=== PATIENT | male | born 1990 | race Two or more races ===

== ENCOUNTER 2017-04-29 09:38 | Emergency (ER) | payer OTHER ==
[~2017-04-29] VITALS: Ht 175.3 cm; Wt 106.6 kg
[2017-04-29] MEDS ORDERED: IBUPROFEN600 MG ORAL (10:12)
[2017-04-29] MEDS ORDERED: ROBAXIN-750750 MG PO (10:12)
[2017-04-29] MEDS ORDERED: Methocarbamol 750mg tab ORAL ONE (10:15)
[2017-04-29 10:21] VITALS: BP 152/100
[2017-04-29 10:22] VITALS: BP 152/100
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
== END 2017-04-29 10:26 | disposition home or self-care (01) ==
LOC: EMR 10:18
DX: M54.5 Low back pain (principal); G89.29 Other chronic pain; R03.0 Elevated blood-pressure reading, without diagnosis of hypertension
CPT/HCPCS: 99284

== ENCOUNTER 2018-04-08 12:01 | Emergency (ER) | payer OTHER ==
[~2018-04-08] VITALS: Ht 177.8 cm; Wt 89.4 kg
[~2018-04-08 12:01] MED LIST: IBUPROFEN600 MG ORAL; ROBAXIN-750750 MG PO
[2018-04-08] MEDS ORDERED: NKM (12:12)
--- NOTE | 2018-04-08 12:14 | NUR ---
ED Nurse Note: PT. AAOX4. WHEELED INTO THE ROOM DUE TO R ANKLE PAIN. PER PT. HE TRIPPED AND FELL LAST NIGHT WHILE WALKING FAST BUT DID NOT FEEL PAIN LAST NIGHT. STARTED HAVING PAIN ON THE R ANKLE TODAY. SKIN IS INTACT. PER PT. TOOK IBUPROFEN 800MG x 1 HR AGO
--- NOTE | 2018-04-08 12:31 | Emergency Room Report ---
History of Present Illness General Chief Complaint: Lower Extremity Injury Source: Patient Present Illness HPI 27-year-old male with no significant past medical history here complaining of pain in the right ankle and foot after twisting injury times one day ago. Patient reports that he was coming down stairs and he twisted his ankle did not feel much pain immediately after the fall and however started 10 out of 10 pain and right ankle and right lateral foot 2 hours after the accident. Patient has been icing flying topical ointments and Pool wrapping the ankle. Denies any pain radiation, tingling and numbness. He has been taking ibuprofen since last night and the last ibuprofen 800 mg taken 1 hour ago prior to coming to the emergency room. Denies all other injury, chest pain, SOB, palpitations, no other associated symptoms Allergies: Coded Allergies: No Known Allergies (Unverified , 04/29/17) Patient History Past Medical History: see triage record Past Surgical History: none Pertinent Family History: unable to obtain Immunizations: UTD Reviewed Nursing Documentation: PMH: Agreed; PSxH: Agreed Nursing Documentation-PMH Past Medical History: No Stated History Review of Systems All Other Systems: negative except mentioned in HPI Physical Exam Vital Signs Date Time Temp Pulse Resp B/P (MAP) Pulse Ox O2 Delivery O2 Flow Rate FiO2 04/08/18 12:09 98.1 116 20 130/83 97 Room Air Sp02 EP Interpretation: reviewed, normal General Appearance: normal inspection, well appearing, no apparent distress Head: normocephalic, atraumatic Eyes: bilateral eye normal inspection, bilateral eye PERRL ENT: normal ENT inspection, normal pharynx Neck: normal inspection, supple Respiratory: normal inspection, lungs clear, no wheezing Cardiovascular #1: normal inspection, regular rate, rhythm, no edema Gastrointestinal: normal inspection, soft Rectal: deferred Musculoskeletal: gait/station normal, no calf tenderness, swelling - right lateral ankle and foot Neurologic: normal inspection, alert, oriented x3 Psychiatric: normal inspection, judgement/insight normal Skin: normal inspection, no rash, warm/dry Lymphatic: normal inspection, no adenopathy Medical Decision Making PA Attestation all diagnosis and treatment plans were reviewed and discussed with my supervising physician Dr. Hays Diagnostic Impression: Primary Impression: Right ankle sprain ER Course 27-year-old male with no significant past medical history here complaining of pain in the right ankle and foot after twisting injury times one day ago. Patient reports that he was coming down stairs and he twisted his ankle did not feel much pain immediately after the fall and however started 10 out of 10 pain and right ankle and right lateral foot 2 hours after the accident. Patient has been icing flying topical ointments and Pool wrapping the ankle. Denies any pain radiation, tingling and numbness. He has been taking ibuprofen since last night and the last ibuprofen 800 mg taken 1 hour ago prior to coming to the emergency room. Denies all other injury, chest pain, SOB, palpitations, no other associated symptoms Ddx considered but are not limited to right ankle sprain, right foot sprain, right ankle fracture, right foot fracture Vital signs: are WNL, pt. is afebrile H&PE are most consistent with right ankle sprain ORDERS: right ankle x-ray and right foot x-ray, naproxen, voltaren gel ED INTERVENTIONS: right ankle immobilizer, crutches, DISCHARGE: At this time pt. is stable for d/c to home. Will provide printed patient care instructions, and any necessary prescriptions. Care plan and follow up instructions have been discussed with the patient prior to discharge. Other X-Ray Diagnostic Results Other X-Ray Diagnostic Results : X-Ray ordered: right ankle and right foot # of Views/Limited Vs Complete: 3 View Indication: Pain EP Interpretation: Yes JAYLA Xray: Interpretation reviewed, by supervising MD, and agrees with findings. Interpretation: no dislocation, no soft tissue swelling, no fractures Impression: No acute disease Electronically Signed by: Sharon Delarosa PA-C Last Vital Signs Date Time Temp Pulse Resp B/P (MAP) Pulse Ox O2 Delivery O2 Flow Rate FiO2 04/08/18 12:09 98.1 116 20 130/83 97 Room Air Disposition: HOME, SELF-CARE Condition: Stable Scripts Diclofenac Sodium (VOLTAREN) 100 Gm Gel..gram. 2 GM TP BID, #100 GM Prov: Sharon Gasca 04/08/18 Naproxen* (NAPROXEN*) 500 Mg Tablet 500 MG ORAL TWICE A DAY, #30 TAB Prov: Sharon Gasca 04/08/18 Patient Instructions: Ankle Sprain Additional Instructions: follow with the primary care provider and if any new symptoms such as tingling and numbness further imaging such as MRI needed pending radiologist's report if any changes he will be called Sharon Gasca Apr 08, 2018 12:31
[2018-04-08] MEDS ORDERED: VOLTAREN100 G1 TP (13:27)
[2018-04-08] MEDS ORDERED: NAPROXEN500 M2 ORAL (13:27)
[2018-04-08 13:40] VITALS: BP 123/77
--- NOTE | 2018-04-08 13:40 | NUR ---
ED Nurse Note: Pt cleared DC by JAYLA Aviles. Pt is A/Ox4, VSS, DC instruction and prescriptions given as well as immobilizer on Lt ankle and right size of crutches. pt verbalized understanding on crutch use. ID wristband removed. All belongings given to pt. Pt ambulated out with crutches of ER.
--- NOTE | 2018-04-09 10:30 | Diagnostic Imaging Report ---
Indication: Trauma, pain, swelling Technique: 3 views of the right ankle Comparison: none Findings: No acute fractures. No dislocations. Joint spaces are preserved. Normal mineralization. No radiopaque foreign body. Impression: Negative
--- NOTE | 2018-04-09 10:33 | Diagnostic Imaging Report ---
Indication: Trauma, pain, swelling Technique: 3 views right foot Comparison: none Findings: No acute fractures. No dislocations. The joint spaces are preserved. There is mild hammertoe deformity of the second through fifth digits. Impression: No acute bony trauma
== END 2018-04-08 13:40 | disposition home or self-care (01) ==
LOC: EMR 12:25
DX: S93.401A Sprain of unspecified ligament of right ankle, initial encounter (principal); X50.1XXA Overexertion from prolonged static or awkward postures, initial encounter; Y92.89 Other specified places as the place of occurrence of the external cause
CPT/HCPCS: 29515; 99283

== ENCOUNTER 2019-07-08 10:28 | Emergency (ER) | payer OTHER ==
[~2019-07-08] VITALS: Ht 175.3 cm; Wt 113.4 kg
[~2019-07-08 10:28] MED LIST changes: +NAPROXEN500 M2 ORAL; +NKM; +VOLTAREN100 G1 TP
--- NOTE | 2019-07-08 11:09 | NUR ---
ED Nurse Note: pt taken to x ray
--- NOTE | 2019-07-08 11:10 | Emergency Room Report ---
History of Present Illness General Chief Complaint: Multiple Trauma/Fall Source: Patient Present Illness HPI 28-year-old male presents complaining of hip pain status post fall. States that he was walking down the stairs yesterday at work when he tripped and fell. Denies falling and hitting his head. Denies hitting his head or LOC. Complaining of pain to his right buttock and right hip. Dull, 6 out of 10, nonradiating. Is able to bear weight. No other aggravating relieving factors. Denies any other associated symptoms Allergies: Coded Allergies: No Known Allergies (Unverified , 04/29/17) COVID-19 Screening Contact w/high risk pt: No Recent Travel to affected area: No Experienced COVID-19 symptoms?: No Patient History Past Medical History: HTN Past Surgical History: none Pertinent Family History: none Social History: Denies: smoking, alcohol use, drug use Immunizations: UTD Reviewed Nursing Documentation: PMH: Agreed; PSxH: Agreed Nursing Documentation-PMH Past Medical History: No History, Except For Hx Hypertension: Yes Review of Systems All Other Systems: negative except mentioned in HPI Physical Exam Vital Signs Date Time Temp Pulse Resp B/P (MAP) Pulse Ox O2 Delivery O2 Flow Rate FiO2 07/08/19 10:36 98.8 92 19 135/83 (100) 99 Room Air Sp02 EP Interpretation: reviewed, normal General Appearance: no apparent distress, alert, GCS 15, non-toxic Head: normocephalic, atraumatic Eyes: bilateral eye normal inspection, bilateral eye PERRL ENT: hearing grossly normal, normal pharynx, no angioedema, normal voice Neck: full range of motion, supple/symm/no masses Respiratory: chest non-tender, lungs clear, normal breath sounds, speaking full sentences Cardiovascular #1: regular rate, rhythm, no edema Cardiovascular #2: 2+ carotid (R), 2+ carotid (L), 2+ radial (R), 2+ radial (L) , 2+ dorsalis pedis (R), 2+ dorsalis pedis (L) Gastrointestinal: normal bowel sounds, non tender, soft, non-distended, no guarding, no rebound Rectal: deferred Genitourinary: normal inspection, no CVA tenderness Musculoskeletal: back normal, normal range of motion, gait/station normal, tender - R hip/buttock Neurologic: alert, motor strength/tone normal, oriented x3, sensory intact, responsive, speech normal Psychiatric: judgement/insight normal, memory normal, mood/affect normal, no suicidal/homicidal ideation Reflexes: 3+ bicep (R), 3+ bicep (L), 3+ tricep (R), 3+ tricep (L), 3+ knee (R) , 3+ knee (L) Skin: no rash Lymphatic: no adenopathy Medical Decision Making Diagnostic Impression: Primary Impression: Hip injury Qualified Codes: S79.911A - Unspecified injury of right hip, initial encounter Additional Impression: Fall Qualified Codes: W19.XXXA - Unspecified fall, initial encounter ER Course Hospital Course 28-year-old male presents status post fall with right hip pain Differential diagnoses include: Fracture, dislocation, sprain, contusion Clinical course Patient placed on stretcher. After initial history and physical, I ordered pain medications and Xrays of R hip Xrays read shows no acute fracture/dislocation. I discussed findings with patient. On reassessment pain improved. Safe for discharge with close outpatient follow-up. I will provide referrals Diagnosis - hip injury, fall Stable and discharged to home with prescription for Motrin. apply ice, keep elevated. weight bear as tolerated. Followup with PMD. Return to ED if symptoms recur or worsen Other X-Ray Diagnostic Results Other X-Ray Diagnostic Results : X-Ray ordered: R hip # of Views/Limited Vs Complete: 3 View Indication: Pain EP Interpretation: Yes Interpretation: no dislocation, no soft tissue swelling, no fractures Impression: No acute disease Electronically Signed by: Electronically signed by Fermin Hays MD Last Vital Signs Date Time Temp Pulse Resp B/P (MAP) Pulse Ox O2 Delivery O2 Flow Rate FiO2 07/08/19 10:36 98.8 92 19 135/83 (100) 99 Room Air Status: improved Disposition: HOME, SELF-CARE Condition: Stable Scripts Ibuprofen* (MOTRIN*) 600 Mg Tablet 600 MG ORAL Q8H PRN for FOR PAIN, #30 TAB 0 Refills Prov: Fermin Hays MD 07/08/19 Fermin Hays MD July 08, 2019 11:10
--- NOTE | 2019-07-08 11:27 | NUR ---
ED Nurse Note: back from x ray
[2019-07-08] MEDS ORDERED: IBUPROFEN600 M1 ORAL (11:28)
[2019-07-08 11:34] VITALS: BP 135/83
[2019-07-08 11:35] VITALS: BP 135/83
--- NOTE | 2019-07-08 11:35 | NUR ---
ER DISCHARGE NOTE: Patient is cleared to be discharged per ERMD, pt is aox4, on room air, with stable vital signs. pt was given dc and prescription instructions, pt was able to verbalize understanding, pt is able to ambulate with steady gait. pt took all belongings.
--- NOTE | 2019-07-08 11:58 | Diagnostic Imaging Report ---
Indication: Pain, status post fall Technique: One view the pelvis, 2 views of the right hip Comparison: none Findings: No acute fractures. No dislocations. The joint spaces are preserved. Impression: Negative
== END 2019-07-08 11:35 | disposition home or self-care (01) ==
LOC: EMR 11:24
DX: S79.911A Unspecified injury of right hip, initial encounter (principal); W01.0XXA Fall on same level from slipping, tripping and stumbling without subsequent striking against object, initial encounter; Y92.9 Unspecified place or not applicable; Y99.0 Civilian activity done for income or pay; I10 Essential (primary) hypertension; K62.89 Other specified diseases of anus and rectum
CPT/HCPCS: 99283

== ENCOUNTER 2019-10-17 06:35 | Emergency (ER) | payer OTHER ==
[~2019-10-17] VITALS: Ht 175.3 cm; Wt 113.4 kg
[~2019-10-17 06:35] MED LIST changes: +IBUPROFEN600 M1 ORAL
--- NOTE | 2019-10-17 07:10 | NUR ---
ED Nurse Note: Pt walked into ED for R testicular pain 9/10 for 3 days. Pt also has noticed some blood in semen ejaculation 3 days ago. Pt is alert and orientedx4, ambulatory.
[2019-10-17 07:20] VITALS: BP 127/83
[2019-10-17 07:20] LABS: APPEARANCE,URINE SLIGHTLY CLOUDY; BILIRUBIN, URINE NEGATIVE (NEGATIVE); GLUCOSE, URINE (UA) NEGATIVE (NEGATIVE); KETONES,URINE NEGATIVE (NEGATIVE); LEUKOCYTE ESTERASE ,URINE 2+ (NEGATIVE); NITRITE,URINE NEGATIVE (NEGATIVE); PH,URINE 5 (4.5-8.0); PROTEIN,URINE 2+ (NEGATIVE); UROBILINOGEN,URINE NORMAL MG/DL (0.0-1.0)
[2019-10-17 07:22] LABS: COLOR,URINE PALE YELLOW
--- NOTE | 2019-10-17 07:24 | Emergency Room Report ---
History of Present Illness General Chief Complaint: Male Urogenital Problems Source: Patient Present Illness HPI 28-year-old male presents with right testicular pain, that started 3 days ago after masturbation, patient endorses sharp pain in his right testicle he noticed blood in his ejaculate, he states his right testicle has moderate sharp pain aggravated with movement alleviated the rest no fevers no chills, no dysuria patient presents for evaluation he denies any current discharge from the penis Allergies: Coded Allergies: No Known Allergies (Unverified , 04/29/17) COVID-19 Screening Contact w/high risk pt: No Recent Travel to affected area: No Experienced COVID-19 symptoms?: No COVID-19 Testing performed SEARCH MANAGER: No Patient History Past Medical History: see triage record Reviewed Nursing Documentation: PMH: Agreed; PSxH: Agreed Nursing Documentation-PMH Past Medical History: No Stated History Hx Hypertension: Yes Review of Systems All Other Systems: negative except mentioned in HPI Physical Exam Vital Signs Date Time Temp Pulse Resp B/P (MAP) Pulse Ox O2 Delivery O2 Flow Rate FiO2 10/17/19 06:56 98.4 99 20 133/85 (101) 99 Room Air General Appearance: well appearing, no apparent distress Head: normocephalic, atraumatic ENT: hearing grossly normal, normal voice Neck: full range of motion, supple Respiratory: no respiratory distress, speaking full sentences Genitourinary: other - Radio Board Operator David Quintanilla, penis unremarkable no discharge, uncircumcised, the right testicle is more elevated than the left,normal variant , cremasteric reflex intact bilaterally tenderness to palpation right testicle, no erythema no swelling Neurologic: alert, normal gait Psychiatric: mood/affect normal Skin: no rash Medical Decision Making Diagnostic Impression: Primary Impression: Epididymitis ER Course Patient presents with right testicular pain differential diagnosis includes torsion, epididymitis, orchitis Ultrasound shows epididymitis, will treat patient for STDs, patient given ceftriaxone, azithromycin, will start patient on doxycycline for 10 days Patient counseled to follow-up with PCP for formal STD testing Disposition home with return precautions follow-up with PCP Laboratory Tests Test 10/17/19 07:02 Urine Color Pale yellow Urine Appearance Slightly cloudy Urine pH 5 (4.5-8.0) Urine Specific [place] 1.020 (1.005-1.035) Urine Protein 2+ (NEGATIVE) H Urine Glucose (UA) Negative (NEGATIVE) Urine Ketones Negative (NEGATIVE) Urine Blood 3+ (NEGATIVE) H Urine Nitrite Negative (NEGATIVE) Urine Bilirubin Negative (NEGATIVE) Urine Urobilinogen Normal MG/DL (0.0-1.0) Urine Leukocyte Esterase 2+ (NEGATIVE) H Urine RBC 5-10 /HPF (0 - 0) H Urine WBC 15-20 /HPF (0 - 0) H Urine Squamous Epithelial Cells Occasional /LPF Urine Bacteria Moderate /HPF (NONE) H Urine Hyaline Casts 0-2 /LPF (NONE) H Urine Mucus Few /LPF (NONE/OCC) H CT/MRI/US Diagnostic Results CT/MRI/US Diagnostic Results : Impression Procedure: US Testicular Scrotum EXAM: US Testicular Scrotum CLINICAL HISTORY: Testicular pain. COMPARISON: None TECHNIQUE: Ultrasound examination of the scrotum and testes includes grayscale images, and color and spectral doppler analysis. FINDINGS: The right testis measures 3.5 x 1.7 x 2.5 cm. The left testis measures 3.8 x 1.6 x 2.6 and. There is no intratesticular mass. Normal vascular flow seen bilaterally. The right epididymis is enlarged and hypervascular with when compared to the left. There is a small right hydrocele. Small left varicocele is noted. There is diffuse scrotal wall thickening/edema. IMPRESSION: ENLARGED AND HYPERVASCULAR RIGHT EPIDIDYMIS SUGGESTIVE OF EPIDIDYMITIS. Dictated By: Duane Ramirez MD Electronically Signed By: Duane Ramirez MD Signed Date/Time 10/17/19 0912 CC: Nick Vickers MD Last Vital Signs Date Time Temp Pulse Resp B/P (MAP) Pulse Ox O2 Delivery O2 Flow Rate FiO2 10/17/19 06:56 98.4 99 20 133/85 (101) 99 Room Air Disposition: HOME, SELF-CARE Condition: Stable Scripts Doxycycline Monohydrate* (DOXYCYCLINE MONOHYDRATE*) 100 Mg Capsule 100 MG ORAL Q12H, #20 CAP 0 Refills Prov: Nick Vickers MD 10/17/19 Referrals: [facility] Patient Instructions: Epididymitis Additional Instructions: The patient was provided with discharge instructions, notified to follow-up with a primary care doctor and or specialist in the next 24-48 hours, and to return to the ED if they have worsening of their symptoms. Please note that this report is being documented using [employer] technology. This can lead to erroneous entry secondary to incorrect interpretation by the dictating instrument. Please go to your doctor to get formalized STD testing Nick Vickers MD Oct 17, 2019 07:24
[2019-10-17] MEDS ORDERED: Azithromycin 250mg tab ORAL ONE (08:15)
[2019-10-17] MEDS ORDERED: Lidocaine 1% MPF 10mg/ml 5ml INJ ONE (08:15)
[2019-10-17] MEDS ORDERED: DOXYCYCLINE MO100 MG ORAL (08:20)
--- NOTE | 2019-10-17 08:37 | NUR ---
ER DISCHARGE NOTE: Patient is cleared to be discharged per ERMD, pt is aox4, on room air, with stable vital signs. pt was given dc and prescription instructions, pt was able to verbalize understanding, pt id band removed. pt is able to ambulate with steady gait. pt took all belongings. Pt educated on epidymitis.
[2019-10-17 08:38] VITALS: BP 125/82
--- NOTE | 2019-10-17 09:17 | Diagnostic Imaging Report ---
EXAM: US Testicular Scrotum CLINICAL HISTORY: Testicular pain. COMPARISON: None TECHNIQUE: Ultrasound examination of the scrotum and testes includes grayscale images, and color and spectral doppler analysis. FINDINGS: The right testis measures 3.5 x 1.7 x 2.5 cm. The left testis measures 3.8 x 1.6 x 2.6 and. There is no intratesticular mass. Normal vascular flow seen bilaterally. The right epididymis is enlarged and hypervascular with when compared to the left. There is a small right hydrocele. Small left varicocele is noted. There is diffuse scrotal wall thickening/edema. IMPRESSION: ENLARGED AND HYPERVASCULAR RIGHT EPIDIDYMIS SUGGESTIVE OF EPIDIDYMITIS.
--- NOTE | 2019-10-20 07:17 | Emergency Room Report ---
Physical Exam Vital Signs Date Time Temp Pulse Resp B/P (MAP) Pulse Ox O2 Delivery O2 Flow Rate FiO2 10/17/19 06:56 98.4 99 20 133/85 (101) 99 Room Air Medical Decision Making Diagnostic Impression: Primary Impression: Epididymitis ER Course Urine cultures on 10/20/2019 reveal Enterobacter aerogenes resistant to doxycycline and first generation cephalosporin, sensitive to macrolides. I spoke to the patient who says that he is feeling somewhat better but still has some pain. He gave me the pharmacy information. Called in prescription for ciprofloxacin 500 mg twice daily for 10 days. Patient says he will [employer] the prescription this morning. Told to come back to the emergency department if he is still having symptoms despite taking this medication. Last Vital Signs Date Time Temp Pulse Resp B/P (MAP) Pulse Ox O2 Delivery O2 Flow Rate FiO2 10/17/19 08:38 98.4 82 17 125/82 97 Room Air Disposition: HOME, SELF-CARE Condition: Stable Scripts Doxycycline Monohydrate* (DOXYCYCLINE MONOHYDRATE*) 100 Mg Capsule 100 MG ORAL Q12H, #20 CAP 0 Refills Prov: Nick Vickers MD 10/17/19 Referrals: [facility] Departure Forms: Return to Work Return to Work Date: Oct 21, 2019 Patient Instructions: Epididymitis Additional Instructions: The patient was provided with discharge instructions, notified to follow-up with a primary care doctor and or specialist in the next 24-48 hours, and to return to the ED if they have worsening of their symptoms. Please note that this report is being documented using [employer] technology. This can lead to erroneous entry secondary to incorrect interpretation by the dictating instrument. Please go to your doctor to get formalized STD testing To Muniz M.D. Oct 20, 2019 07:17
== END 2019-10-17 08:39 | disposition home or self-care (01) ==
LOC: EMR 07:00
DX: N45.1 Epididymitis (principal); I10 Essential (primary) hypertension
CPT/HCPCS: 76870; 81003; 87086; 87181; 96372; 96374; 99284; J0696